=== PATIENT | male | born 1990 | race Caucasian/White ===

== ENCOUNTER 2017-03-21 02:13 | Emergency (ER) | payer SELFPAY ==
[~2017-03-21] VITALS: Ht 172.7 cm; Wt 117.9 kg
--- NOTE | 2017-03-21 02:13 | NUR ---
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 TOOK IBU 200MG X 4 TABS SECURITY ASSOCIATE. PT HAS NO PAIN. NO SOB. TACHY 130-140'S BUT OTHERWISE VSS NAD. WILL CONTINUE TO MONITOR FOR ANY CHANGES DURING THE SHIFT
--- NOTE | 2017-03-21 02:59 | NUR ---
ER RAY AT BEDSIDE
[2017-03-21] MEDS ORDERED: CEFTRIAXONE 1 G VIAL ONE (03:16)
[2017-03-21] MEDS ORDERED: DEXAMETHASONE SOD PHOSPHATE 10 MG/ML VIAL ONE (03:16)
[2017-03-21] MEDS ORDERED: KETOROLAC TROMETHAMINE INJ 30 MG/ML VIAL ONE (03:16)
[2017-03-21] MEDS ORDERED: KETOROLAC TROMETHAMINE INJ 30 MG/ML VIAL IV ONE (03:30)
[2017-03-21] MEDS ORDERED: DEXAMETHASONE SOD PHOSPHATE 4 MG/ML VIAL IV ONE (03:30)
[2017-03-21] MEDS ORDERED: CEFTRIAXONE 1GM BAG (ER ONLY) 1 GM/50 ML PIGGYBACK IV ONE (03:30)
[2017-03-21] MEDS ORDERED: IV NS 0.9% 1,000 ML BAG IV ONE (03:30)
[2017-03-21 04:07] VITALS: BP 142/84
== END 2017-03-31 03:42 | disposition home or self-care (01) ==
LOC: ER 02:17
DX: J03.80 Acute tonsillitis due to other specified organisms (principal); B96.89 Other specified bacterial agents as the cause of diseases classified elsewhere; Z60.2 Problems related to living alone
CPT/HCPCS: A4216; A4606; J0696; J1100; J1885; J7030; Z7610

== ENCOUNTER 2021-09-13 07:31 | Emergency (ER) | payer SELFPAY ==
[~2021-09-13] VITALS: Ht 172.7 cm; Wt 136.1 kg
--- NOTE | 2021-09-13 07:38 | NUR ---
BIB FOR C/O WOKE UP WITH SEVERE LLQ ABD PAIN, +N/V. PAIN STARTED ABOUT 2 HOURS AGO AND VOMITED 3X THIS MORNING. ATTACHED TO [facility]. WARM ABLNKET PROVIDED FOR COMFORT. DR ADLER AT BEDSIDE. AWAITING MD VARELA.
--- NOTE | 2021-09-13 07:40 | NUR ---
URINE COLLECTED AND SENT
--- NOTE | 2021-09-13 07:46 | NUR ---
IV ESTABLISHED R HAND 20G. LABS DRAWN AND COLLECTED AT BEDSIDE.
[2021-09-13] MEDS ORDERED: ONDANSETRON HCL/PF 4 MG/2 ML VIAL ONE (07:53)
[2021-09-13] MEDS ORDERED: MORPHINE SULFATE INJ 4 MG/ML DISP.SYRIN ONE (07:54)
[2021-09-13] MEDS ORDERED: MORPHINE SULFATE INJ 2 MG/ML DISP.SYRIN IV ONE (08:00)
[2021-09-13] MEDS ORDERED: IV NS 0.9% 1,000 ML BAG IV ONE (08:00)
[2021-09-13] MEDS ORDERED: ONDANSETRON HCL/PF - ER 4 MG/2 ML VIAL IV ONE (08:00)
[2021-09-13 08:01] LABS: BASOPHILS % (AUTO) 0.2 % (0.0-2.0); EOSINOPHILS % (AUTO) 0.4 % (0.0-6.0); HEMATOCRIT 45 % (39-51); HEMOGLOBIN 14.8 g/dL (13.5-17.5); LYMPHOCYTES # (AUTO) 1.7 K/uL (0.8-4.8); LYMPHOCYTES % (AUTO) 14.6 % (20.0-44.0); MEAN CORPUSCULAR HGB CONC 33 g/dl (31.0-36.0); MEAN CORPUSCULAR VOLUME 84 fL (80-96); MONOCYTES # (AUTO) 0.3 K/uL (0.1-1.30); NEUTROPHILS # (AUTO) 9.5 K/uL (1.8-8.9); NEUTROPHILS % (AUTO) 81.8 % (43.0-81.0); PLATELET COUNT (AUTO) 261 K/uL (150-450); RED BLOOD CELL COUNT(AUTO) 5.31 MIL/uL (4.5-6.0); WHITE BLOOD COUNT (AUTO) 11.6 K/uL (4.3-11.0)
--- NOTE | 2021-09-13 08:13 | NUR ---
Patient came back to room via gurney from CT.
[2021-09-13 08:19] LABS: ALBUMIN 3.9 g/dL (3.4-5.0); BILIRUBIN,DIRECT 0.2 mg/dL (0.0-0.2); BILIRUBIN,TOTAL 0.9 mg/dL (0.2-1.0); CALCIUM, SERUM 8.8 mg/dL (8.5-10.1); CREATININE 1.2 mg/dL (0.6-1.3); POTASSIUM 3.5 mmol/L (3.5-5.1); TOTAL PROTEIN, SERUM 7.7 g/dL (6.4-8.2)
[2021-09-13] MEDS ORDERED: KETOROLAC TROMETHAMINE INJ 30 MG/ML VIAL ONE (08:30)
[2021-09-13] MEDS ORDERED: KETOROLAC TROMETHAMINE INJ 30 MG/ML VIAL IV ONE (08:30)
[2021-09-13 08:48] LABS: BILIRUBIN,URINE MODERATE (NEGATIVE); COLOR,URINE DARK YELLOW (YELLOW); LEUKOCYTE ESTERASE ,URINE NEGATIVE (NEGATIVE); NITRITE, URINE POSITIVE (NEGATIVE); PH,URINE 6.5 (5.0-8.0); PROTEIN,URINE >=300 mg/dl (NEGATIVE); UGLUCOSE NEGATIVE (NEGATIVE)
[2021-09-13 09:05] LABS: BACTERIA,URINE Rare /HPF (None Seen); RBC,URINE 21-50 /HPF (0-2); SQUAMOUS EPITHELIAL CELL,UR Few /HPF (None Seen); WBC,URINE 0-2 /HPF (0-3); YEAST,URINE Few /HPF (None Seen)
[2021-09-13] MEDS ORDERED: TAMS-12 PO (09:07)
[2021-09-13] MEDS ORDERED: IBUP-1957 PO (09:07)
--- NOTE | 2021-09-13 09:20 | NUR ---
IV removed. Catheter intact and site benign. Pressure and 4x4 applied to site. No bleeding noted.Patient discharged to home in stable condition. Written and verbal after care instructions given. Patient verbalizes understanding of instruction.
[2021-09-13 09:21] VITALS: BP 162/101
[2021-09-14] MEDS ORDERED: HYDR-4303 PO (22:19)
== END 2021-09-13 09:22 | disposition home or self-care (01) ==
LOC: ER 07:41
DX: N20.0 Calculus of kidney (principal); R31.9 Hematuria, unspecified; R11.2 Nausea with vomiting, unspecified; Z60.2 Problems related to living alone; Z79.899 Other long term (current) drug therapy
CPT/HCPCS: 99284; 74176; 96374; 96375; 96361; 85025; 80048; 82550; 87086; 83690; 80076; 81001; 36415; J2270; J1885; J2405; J7030

== ENCOUNTER 2021-09-14 18:46 | Emergency (ER) | payer SELFPAY ==
[~2021-09-14] VITALS: Ht 172.7 cm; Wt 136.1 kg
[~2021-09-14 18:46] MED LIST: IBUP-1957 PO; TAMS-12 PO
--- NOTE | 2021-09-14 20:08 | NUR ---
BIBFAMILY. WORSENING L FLANK PAIN. DX OF KIDNEY STONE YESTERDAY. PATIENT ALERT AND ORIENTED X3. AMBULATORY WITH NON LABORED BREATHING IN BED 10 AWAITING MD VARELA.
--- NOTE | 2021-09-14 21:12 | NUR ---
ER DIRECTOR OCCUPATIONAL AT BEDSIDE
[2021-09-14] MEDS ORDERED: ONDANSETRON HCL/PF 4 MG/2 ML VIAL ONE (21:15)
[2021-09-14] MEDS ORDERED: MORPHINE SULFATE INJ 4 MG/ML DISP.SYRIN ONE (21:15)
[2021-09-14] MEDS ORDERED: KETOROLAC TROMETHAMINE INJ 30 MG/ML VIAL ONE (21:15)
[2021-09-14] MEDS ORDERED: MORPHINE SULFATE INJ 2 MG/ML DISP.SYRIN IV ONE (21:30)
[2021-09-14] MEDS ORDERED: ONDANSETRON HCL/PF 4 MG/2 ML VIAL IVP ONE (21:30)
[2021-09-14] MEDS ORDERED: IV NS 0.9% 1,000 ML BAG IV ONE (21:30)
[2021-09-14] MEDS ORDERED: KETOROLAC TROMETHAMINE INJ 30 MG/ML VIAL IV ONE (21:30)
[2021-09-14 21:36] LABS: BILIRUBIN,URINE NEGATIVE (NEGATIVE); COLOR,URINE YELLOW (YELLOW); LEUKOCYTE ESTERASE ,URINE NEGATIVE (NEGATIVE); NITRITE, URINE NEGATIVE (NEGATIVE); PROTEIN,URINE NEGATIVE (NEGATIVE); UGLUCOSE NEGATIVE (NEGATIVE); UROBILINOGEN,URINE 0.2 EU/dL (0.2)
[2021-09-14 21:47] LABS: BACTERIA,URINE 1+ /HPF (None Seen); SQUAMOUS EPITHELIAL CELL,UR Few /HPF (None Seen); URINE AMORPHOUS URATE Few /HPF (None Seen); WBC,URINE 0-2 /HPF (0-3)
[2021-09-14] MEDS ORDERED: HYDR-4303 PO (22:19)
--- NOTE | 2021-09-14 22:24 | NUR ---
Patient discharged to home in stable condition. Written and verbal after care instructions given. Patient verbalizes understanding of instruction. IV removed. Catheter intact and site benign. Pressure and 4x4 applied to site. No bleeding noted.
[2021-09-14 22:25] VITALS: BP 129/72
== END 2021-09-14 22:25 | disposition home or self-care (01) ==
LOC: ER 18:54
DX: N20.0 Calculus of kidney (principal); R10.32 Left lower quadrant pain
CPT/HCPCS: 99284; 96374; 96375; 96361; 81001; J2270; J1885; J2405; J7030

== ENCOUNTER 2022-02-23 19:36 | Emergency (ER) | payer SELFPAY ==
[~2022-02-23] VITALS: Ht 172.7 cm; Wt 136.1 kg
[~2022-02-23 19:36] MED LIST changes: +HYDR-4303 PO
--- NOTE | 2022-02-23 20:05 | NUR ---
BIBS. L TESTICULAR PAIN X THIS MORNING. REPORTS BLOOD IN URINE. PATIENT IS AAOX4. ABLE TO MAKE NEEDS KNOWN. AMBULATORY. PLACED COMFORTABLY IN BED. VITALS CHECKED.
--- NOTE | 2022-02-23 20:13 | NUR ---
URINE SPECIMEN SENT TO LAB
[2022-02-23 20:43] LABS: BASOPHILS % (AUTO) 0.3 % (0.0-2.0); EOSINOPHILS % (AUTO) 0.5 % (0.0-6.0); HEMATOCRIT 48 % (39-51); HEMOGLOBIN 15.5 g/dL (13.5-17.5); LYMPHOCYTES % (AUTO) 14.7 % (20.0-44.0); MEAN CORPUSCULAR HGB CONC 33 g/dl (31.0-36.0); MEAN CORPUSCULAR VOLUME 85 fL (80-96); MONOCYTES # (AUTO) 0.7 K/uL (0.1-1.30); NEUTROPHILS # (AUTO) 10.7 K/uL (1.8-8.9); NEUTROPHILS % (AUTO) 79.5 % (43.0-81.0); PLATELET COUNT (AUTO) 261 K/uL (150-450); RED BLOOD CELL COUNT(AUTO) 5.61 MIL/uL (4.5-6.0); WHITE BLOOD COUNT (AUTO) 13.5 K/uL (4.3-11.0)
[2022-02-23 21:08] LABS: BILIRUBIN,URINE NEGATIVE (NEGATIVE); COLOR,URINE DARK YELLOW (YELLOW); LEUKOCYTE ESTERASE ,URINE TRACE (NEGATIVE); NITRITE, URINE POSITIVE (NEGATIVE); PH,URINE 5.5 (5.0-8.0); PROTEIN,URINE 2+ mg/dl (NEGATIVE); UGLUCOSE NEGATIVE (NEGATIVE)
[2022-02-23 21:21] LABS: ALBUMIN 3.8 g/dL (3.4-5.0); BILIRUBIN,DIRECT 0.2 mg/dL (0.0-0.2); BILIRUBIN,TOTAL 0.9 mg/dL (0.2-1.0); POTASSIUM 3.7 mmol/L (3.5-5.1); TOTAL PROTEIN, SERUM 7.6 g/dL (6.4-8.2)
[2022-02-23 21:42] LABS: RBC,URINE TOO NUMEROUS TO COUN /HPF (0-2)
[2022-02-23 21:43] LABS: BACTERIA,URINE 1+ /HPF (None Seen); MUCUS,URINE Many /LPF (None Seen); SQUAMOUS EPITHELIAL CELL,UR 0-2 /HPF (None Seen)
[2022-02-23] MEDS ORDERED: ONDANSETRON HCL/PF 4 MG/2 ML VIAL IV ONE (22:00)
[2022-02-23] MEDS ORDERED: KETOROLAC TROMETHAMINE INJ 30 MG/ML VIAL IV ONE (22:00)
[2022-02-23] MEDS ORDERED: FENTANYL PF 100MCG/2ML AMPUL IV ONE (22:00)
[2022-02-23] MEDS ORDERED: IV NS 0.9% 1,000 ML IV ONE (22:00)
[2022-02-23] MEDS ORDERED: ONDANSETRON HCL/PF 4 MG/2 ML VIAL ONE (22:05)
[2022-02-23] MEDS ORDERED: KETOROLAC TROMETHAMINE 15 MG/ML VIAL ONE (22:05)
[2022-02-23] MEDS ORDERED: FENTANYL PF 100MCG/2ML AMPUL ONE (22:06)
--- NOTE | 2022-02-23 22:17 | NUR ---
PT TAKEN TO CT VIA [facility]
--- NOTE | 2022-02-23 22:18 | NUR ---
PT TO CT
[2022-02-23] MEDS ORDERED: CEPH500C2 PO (23:34)
[2022-02-23] MEDS ORDERED: TAMS-12 PO (23:34)
[2022-02-23] MEDS ORDERED: IBUP-1955 PO (23:34)
[2022-02-23] MEDS ORDERED: HYDR-4303 PO (23:34)
--- NOTE | 2022-02-23 23:50 | NUR ---
Patient discharged to home in stable condition. RX Written and verbal after care instructions given. Patient verbalizes understanding of instruction. PT ambulatory with a steady gait
[2022-02-23 23:51] VITALS: BP 156/94
== END 2022-02-23 23:53 | disposition home or self-care (01) ==
LOC: ER 19:38
DX: N13.2 Hydronephrosis with renal and ureteral calculous obstruction (principal); N39.0 Urinary tract infection, site not specified; R31.9 Hematuria, unspecified; Z87.442 Personal history of urinary calculi; Z79.899 Other long term (current) drug therapy
CPT/HCPCS: 99285; 74176; 96374; 96375; 96361; 76870; 85025; 80048; 87086; 83690; 80076; 81001; 36415; J3010; J2405; J7030; J1885